=== PATIENT | female | born 1955 | race Caucasian/White ===

== ENCOUNTER 2020-05-27 19:54 | Emergency (ER) | payer MEDICAID ==
[~2020-05-27] VITALS: Ht 144.8 cm; Wt 56.8 kg
[2020-05-27 19:58] VITALS: Ht 144.8 cm; Wt 56.8 kg
[2020-05-27] MEDS ORDERED: LIPITOR20 MG PO (20:00)
[2020-05-27] MEDS ORDERED: CELEXA20 MG PO (20:00)
[2020-05-27] MEDS ORDERED: LISINOPRIL10 MG PO (20:00)
[2020-05-27] MEDS ORDERED: HYDROCODON-ACE1 EA10 PO ×2 (20:01→21:07)
[2020-05-27] MEDS ORDERED: VOLTAREN75 MG PO (21:07)
== END 2020-05-27 21:21 | disposition home or self-care (01) ==
LOC: D.ER 19:54
DX: S52.91XA Unspecified fracture of right forearm, initial encounter for closed fracture (principal); M25.531 Pain in right wrist; W19.XXXA Unspecified fall, initial encounter; Y93.9 Activity, unspecified; Y92.9 Unspecified place or not applicable

== ENCOUNTER 2020-06-06 07:51 | Day surgery (SDC) | payer BC ==
[~2020-06-06] VITALS: Ht 144.8 cm; Wt 56.7 kg
--- NOTE | ~2020-06-06 | OP ---
PATIENT NAME: DAWIT SUTHERLAND MEDICAL RECORD: [id number] :57 LOCATION:[facility] ADMISSION DATE: SURGEON: MARIA G HERNÁNDEZ MD DATE OF OPERATION: 06/06/2020 PREOPERATIVE DIAGNOSIS: Right distal radius fracture. POSTOPERATIVE DIAGNOSIS: Right distal radius fracture. PROCEDURE PERFORMED: ORIF right distal radius (intra-articular greater than 2 pieces). INDICATIONS FOR THE PROCEDURE: Ms. Sutherland is a 64-year-old female who fell approximately 1 week ago and injured her right wrist. She sustained an intra-articular fracture of the distal radius. We attempted to manage this conservatively, but the fracture was not maintaining its alignment. We therefore elected to proceed with surgery for operative repair. Risks, benefits and alternatives of surgery were discussed with the patient and consent was obtained. DESCRIPTION OF THE PROCEDURE: The patient was met in the holding area where her identity and confirmation of procedure was performed. The right upper extremity was marked. She was taken to the operating room where she was placed supine on the operating table and anesthesia was administered. Tourniquet was applied to the right arm. The right arm was prepped and draped in a sterile fashion. The patient received preoperative antibiotics and timeout was performed before initiating the case. On initiation of the case, the arm was exsanguinated and the tourniquet was raised. Total tourniquet time was 44 minutes. A volar Gregory approach was utilized for exposure. Incision was made over the volar wrist, dissecting down to the FCR tendon. Tendon sheath was then split longitudinally. We continued our dissection posteriorly into the deep compartment of the wrist. The pronator teres was reflected and the distal radius was exposed. Pronator quadratus was released along its radial insertion and the fracture was visualized. Fracture was debrided. Reduction was able to be obtained with some manipulation under fluoroscopy. A 3-hole Acumed distal radius plate was then positioned along the distal radius. We adjusted for its alignment held it in place with the K-wire. A cortical screw was then placed through the oblong hole of the plate to secure it to the bone. We again checked our alignment and adjusted for its length distally. Once we were pleased with this position, we began placing screws through the distal holes of the plate. A cortical screw was placed through the most ulnar hole and we were able to capture the dorsal intra-articular fragment of the distal radius and then provided good reapproximation of this bony piece. We then placed 2 more locking screws distally. The radial styloid piece was reduced with a lobster claw clamp and a locking screw and PEG were placed into the radial styloid as well. Two locking screws were placed in the shaft and this completed our fixation. Final images were obtained, which showed good alignment and fixation of the distal radius. Wound was irrigated thoroughly with saline. We attempted to repair the pronator, but we were unable to repair it successfully. The tourniquet was let down. Hemostasis was obtained. The deep tissues were then closed with Vicryl and the skin was closed with Prolene. A sterile dressing was placed. The patient was placed into a volar splint, turned back over to anesthesia where she was awakened, extubated, and taken to recovery room in stable condition. POSTOPERATIVE PLAN: The patient is going to return home with her family today. OPERATIVE REPORT [id number] DAWIT SUTHERLAND She needs to remain in the splint at all times with instructions for no weightbearing to the right upper extremity. No lifting more than 1 pound. We will see her back in clinic in 2 weeks. COMPLICATIONS: None. ANESTHESIA: General LMA. ESTIMATED BLOOD LOSS: 10 mL. TRANSINT:[id number] Voice Confirmation ID: [id number] DOCUMENT ID: [id number] MARIA G HERNÁNDEZ MD CC: [id number] DICTATION DATE: 06/06/20 1445 NURSING INFORMATICS CLINICAL ANALYST: 06/06/20 2320 [facility] 06/06/[address] [id number]
[~2020-06-06 07:51] MED LIST: ALENDRONATE SOD10 MG PO; CELEXA20 MG PO; CYMBALTA20 MG PO; HYDROCODON-ACE1 EA10 PO; LIPITOR20 MG PO; LISINOPRIL-HCT1 EAC7 PO; LISINOPRIL10 MG PO; VOLTAREN75 MG PO
[2020-06-06 08:16] LABS: BASOPHILS 0.4 % (0-2); EOSINOPHILS 2.3 % (0-7); HEMATOCRIT 38.4 % (36.0-48.0); HEMOGLOBIN 12.6 g/dL (12-16); IMMATURE GRANULOCYTES 0.2 % (0-5); LYMPHOCYTE ABS# 1.67 10x3/uL (1.18-3.74); LYMPHOCYTES 31.4 % (15-50); MCH 33.2 pg (26.0-34.0); MCHC 32.8 g/dL (31.0-37.0); MCV 101.3 fL (80.0-100.0); MEAN PLATELET VOLUME 9.2 fL (7.4-10.4); MONOCYTES 13.3 % (2-11); NEUTROPHIL ABS# 2.79 10x3/uL (1.56-6.13); NEUTROPHILS 52.4 % (40-80); PLATELET COUNT 104 10x3/uL (130-400); RBC 3.79 10x6/uL (4.00-5.40); RDW 13.1 % (11.5-14.5); WBC 5.3 10x3/uL (4.8-10.8)
[2020-06-06 08:22] LABS: CALC OSMOLALITY 279 mosm/kg (275-300); CALCIUM 8.1 mg/dL (8.5-10.1); CARBON DIOXIDE 28.6 mmol/L (21.0-32.0); CHLORIDE - SERUM 105 mmol/L (98-107); CREATININE - SERUM 0.6 mg/dL (0.6-1.3); GLUCOSE 130 mg/dL (74-106); POTASSIUM - SERUM 4.2 mmol/L (3.5-5.1); SODIUM 139 mmol/L (136-145); UREA NITROGEN 12 mg/dL (7-18); eGFR NON AFRICAN AMERICAN > 90 mL/min (90-120)
[2020-06-06 09:22] VITALS: BP 134/78; Ht 144.8 cm; Wt 56.7 kg
--- NOTE | 2020-06-06 16:20 | NUR ---
DC TEACHING COMPLETE, VERBALIZES UNDERSTANDING WITH NO QUESTIONS PIV DC'D WITH CATH INTACT ASSISTED PT TO GET DRESSED. 1647 DC'D PT VIA WC BY THIS NURSE TO POV WITH ALL BELONGINGS AND DC PACKET IN HAND. PT'S FRIEND DRIVING.
== END 2020-06-06 16:47 | disposition home or self-care (01) ==
LOC: D.OPS 07:51
PROVIDERS: Anesthesiology; ATTEND Orthopaedic Surgery
DX: S52.571A Other intraarticular fracture of lower end of right radius, initial encounter for closed fracture (principal); X58.XXXA Exposure to other specified factors, initial encounter

== ENCOUNTER → 2020-06-25 09:52 | Outpatient (CLI) | payer BC ==
[2020-06-06 09:22] VITALS: BMI 27.1
== END | disposition home or self-care (01) ==
LOC: D.CT 09:52
PROVIDERS: ATTEND Orthopaedic Surgery
DX: Z97.8 Presence of other specified devices (principal)

== ENCOUNTER 2020-07-04 08:22 | Day surgery (SDC) | payer BC ==
[~2020-07-04] VITALS: Ht 144.8 cm; Wt 59.0 kg
--- NOTE | ~2020-07-04 | OP ---
PATIENT NAME: DAWIT SUTHERLAND MEDICAL RECORD: [id number] :57 [facility] DATE: SURGEON: MARIA G HERNÁNDEZ MD DATE OF OPERATION: 07/04/2020 PREOPERATIVE DIAGNOSES: 1. Right distal radius fracture, status post open reduction internal fixation. 2. Hardware failure, right wrist. 3. Foreign body, right wrist joint. POSTOPERATIVE DIAGNOSES: 1. Right distal radius fracture, status post open reduction internal fixation. 2. Hardware failure, right wrist. 3. Foreign body, right wrist joint. PROCEDURE PERFORMED: 1. Revision fixation of right distal radius. 2. Right wrist arthrotomy with removal of foreign body. INDICATIONS FOR THE PROCEDURE: Ms. Sutherland is a 64-year-old female with a history of ORIF right distal radius fracture approximately 3 weeks ago. She returned to clinic for followup and was noted to have prominent hardware along the radial styloid portion of the wrist as well as foreign body in the dorsal wrist joint. A CT scan was obtained that confirmed these findings. Arrangements were made for her to return to the operating room for revision of hardware and removal of foreign body. Risks, benefits and alternatives of surgery were discussed with the patient and consent was obtained. DESCRIPTION OF THE PROCEDURE: The patient was met in the holding area where her identity and confirmation of the procedure was performed. The right upper extremity was marked. She was taken to the operating room where she was placed supine on the operating table and anesthesia was administered. A tourniquet was applied to the right arm and the right arm was prepped and draped in a sterile fashion. The patient received preoperative antibiotics and timeout was performed prior to initiating the case. On initiation of the case, the arm was exsanguinated and tourniquet was raised. Total tourniquet time was 78 minutes. The previous volar approach to the distal radius was used for exposure. We incised through the skin and subcutaneous tissues, dissecting down to the flexor carpi radialis tendon. The tendon was retracted ulnarly. We continued our deep dissection to the volar aspect of the distal radius. There were some adhesions along the radial artery that were released and these areas were cauterized to prevent further bleeding. We dissected down to the plate and elevated the tissues off the plate to allow for full exposure. There was a prominent screw in the central portion of the plate as well. It was removed and replaced with the locking screw under fluoroscopic visualization. The radial styloid screws were also removed. The radial styloid was in good alignment with just minimal displacement. There was already callus formation and we attempted to use a lopez elevator to help manipulate this, but only achieved minimal movement. We attempted to place screws into the radial styloid through the variable angle portion of the plate. We were not able to achieve sufficient fixation. The screws were therefore removed and we elected to treat this piece conservatively and accept its current alignment, which again is in good position. We then moved dorsally and localized our incision over the dorsal wrist near the SLIL. We incised through the skin and subcutaneous tissues dissected down to the dorsal retinaculum, which was split longitudinally. We entered the dorsal OPERATIVE REPORT [id number] DAWIT SUTHERLAND fourth compartment at the radial edge and continued our dissection deep to the wrist joint. It was incised until we were able to achieve full visualization. There was some synovitis and scar tissue that was debrided with a rongeur. We were then able to fully visualize the articular aspect of the distal radius. This was irrigated thoroughly with saline. After careful manipulation, we were able to identify the bony articular piece that was removed with forceps. The wrist was irrigated thoroughly with saline. The deep capsular tissues were closed with 3-0 Vicryl suture. The dorsal retinaculum was repaired with Vicryl suture as well. There were some vessels along the edge after the tourniquet was let down, that were cauterized. The subcutaneous tissue was closed with Vicryl and the skin was closed with Prolene. We then moved back volarly. Again, we were pleased with our current alignment and final images were obtained. It showed adequate fixation of the distal radius. Good alignment of her fractures. Tourniquet was let down and hemostasis was obtained. There was some bleeding around the radial artery and the deep scar tissue that was present. This was cauterized with the bipolar. Once hemostasis had been obtained, we then proceeded with closure. The deep subcutaneous tissues were closed with Vicryl suture and the skin was closed with Prolene. A sterile dressing was placed. The patient was placed into a thumb spica splint, turned back over to anesthesia where she was awakened and taken to recovery room in stable condition. POSTOPERATIVE PLAN: The patient is going to return home with her family today. She needs to remain in the splint with strict instructions to leave this in place until followup in clinic. No lifting more than 1 pound. We will see her back in clinic in 2 weeks. COMPLICATIONS: None. ESTIMATED BLOOD LOSS: 25 mL. ANESTHESIA: General LMA. TRANSINT:[id number] Voice Confirmation ID: [id number] DOCUMENT ID: [id number] MARIA G HERNÁNDEZ MD CC: [id number] DICTATION DATE: 07/04/20 1307 SEDIMENT REMEDIATION CONSULTANT: 07/04/20 [id number] [place] [address]
[2020-07-04 08:48] LABS: CALC OSMOLALITY 284 mosm/kg (275-300); CARBON DIOXIDE 28.2 mmol/L (21.0-32.0); CHLORIDE - SERUM 105 mmol/L (98-107); CREATININE - SERUM 0.7 mg/dL (0.6-1.3); GLUCOSE 132 mg/dL (74-106); SODIUM 142 mmol/L (136-145); UREA NITROGEN 13 mg/dL (7-18); eGFR NON AFRICAN AMERICAN 90 mL/min (90-120)
[2020-07-04 08:58] LABS: BASOPHILS 0.5 % (0-2); HEMATOCRIT 38.6 % (36.0-48.0); HEMOGLOBIN 12.7 g/dL (12-16); LYMPHOCYTE ABS# 1.79 10x3/uL (1.18-3.74); LYMPHOCYTES 44.4 % (15-50); MCH 33.5 pg (26.0-34.0); MCHC 32.9 g/dL (31.0-37.0); MCV 101.8 fL (80.0-100.0); MEAN PLATELET VOLUME 9.5 fL (7.4-10.4); MONOCYTES 9.7 % (2-11); NEUTROPHIL ABS# 1.71 10x3/uL (1.56-6.13); NEUTROPHILS 42.4 % (40-80); PLATELET COUNT 104 10x3/uL (130-400); RBC 3.79 10x6/uL (4.00-5.40); RDW 13.3 % (11.5-14.5)
[2020-07-04 09:10] VITALS: BP 114/71; Ht 144.8 cm; Wt 59.0 kg
--- NOTE | 2020-07-04 10:10 | NUR ---
1000 RIGHT ARM BLOCK COMPLETED BY SEJAL SALEH. 1010 PT SLEEPING. AROUSES EASILY TO VERBAL STIMULI. PT STATES RIGHT ARM IS BEING TO FEEL NUMB. RESPIRATIONS 20/UNLABORED AND EVEN OXYGEN SATURATION IS 96%. B/P 103/60 HR 74
--- NOTE | 2020-07-04 12:59 | NUR ---
OPA IN AIRWAY ON ADMIT TO RR
--- NOTE | 2020-07-04 14:22 | NUR ---
PT VOIDED. DC INSTRUCTIONS GIVEN TO PT. STATES UNDERSTANDING. DC'D IV CATH FULLY INTACT. WILL DC SHORTLY.
--- NOTE | 2020-07-04 14:41 | NUR ---
PT LEFT UNIT VIA WC AT 1440
== END 2020-07-04 14:40 | disposition home or self-care (01) ==
LOC: D.OPS 08:22
PROVIDERS: Anesthesiology; ATTEND Orthopaedic Surgery
DX: Z98.890 Other specified postprocedural states (principal); T85.698A Other mechanical complication of other specified internal prosthetic devices, implants and grafts, initial encounter